=== PATIENT | male | born 1960 | race Caucasian/White ===

== ENCOUNTER 2023-05-02 08:33 | Observation (INO) ==
--- NOTE | 2023-03-29 13:00 | PAT Medication Instructions ---
Medication Instructions Date of Service March 29, 2023 Home Medications Medication Instructions Recorded cyanocobalamin (vitamin B-12) 1,000 mcg IM ONCE #1 ea 12/12/21 1,000 mcg/mL injection kit azelastine 205.5 mcg (0.15 %) nasal spray 2 spray intranasal BID PRN cetirizine 10 mg capsule (Zyrtec) 10 mg PO QAM fluticasone propionate 50 mcg/actuation nasal spray,suspension 2 spray intranasal DAILY PRN metoprolol succinate 50 mg tablet,extended release 24 hr 50 mg PO QAM pregabalin 150 mg capsule 150 mg PO BID sildenafil 100 mg tablet (Viagra) 100 mg PO DAILY PRN flecainide 100 mg tablet 100 mg PO Q12H cyanocobalamin (vitamin B-12) 1,000 mcg/mL injection kit 1,000 mcg IM ONCE aspirin 81 mg tablet,delayed release 81 mg PO QAM celecoxib 100 mg capsule (Celebrex) 100 mg PO QAM chlorthalidone 25 mg tablet 25 mg PO QAM Continue as directed fluticasone propionate 50 mcg/actuation nasal spray,suspension 2 spray intranasal DAILY PRN(if needed) ASK your surgeon for instructions celecoxib 100 mg capsule (Celebrex) 100 mg PO QAM ASK your prescriber and surgeon aspirin 81 mg tablet,delayed release 81 mg PO QAM DO NOT take the morning of surgery cetirizine 10 mg capsule (Zyrtec) 10 mg PO QAM sildenafil 100 mg tablet (Viagra) 100 mg PO DAILY PRN cyanocobalamin (vitamin B-12) 1,000 mcg/mL injection kit 1,000 mcg IM ONCE chlorthalidone 25 mg tablet 25 mg PO QAM Take morning of surgery With a small sip of water, OTHERWISE NOTHING TO EAT OR DRINK AFTER MIDNIGHT: azelastine 205.5 mcg (0.15 %) nasal spray 2 spray intranasal BID PRN(if needed) metoprolol succinate 50 mg tablet,extended release 24 hr 50 mg PO QAM pregabalin 150 mg capsule 150 mg PO BID flecainide 100 mg tablet 100 mg PO Q12H Take evening before surgery azelastine 205.5 mcg (0.15 %) nasal spray 2 spray intranasal BID PRN(if needed) pregabalin 150 mg capsule 150 mg PO BID flecainide 100 mg tablet 100 mg PO Q12H Other Notes If you have any questions please call us at [phone] or [phone] or [phone] or [phone]
--- NOTE | 2023-04-02 15:03 | Anesthesiology Consultation ---
Date of Service April 02, 2023 Assessment & Plan (1) Encounter for pre-operative examination: Plan - upcoming PCP clearance 04/04/23 Susan De Leon and cardiology clearance [facility] [place] Tati Salamancagt 04/29/23. - Outpatient joint pathway: Pending above clearances. Chart Review Chart Review: Pending: Refer to Additional Notes / Consult section and Patient seen in Pre Admission Testing Teaching & Discussion Pre-Anesthesia Teaching/Discussion Notes: Instructed NPO after midnight before surgery, except medications with 15 cc of water. Medication instructions provided according to the PAT guidelines. History Surgery Operation Date: 05/02/23 12:30 Proposed Procedures p OP: Left Total Hip Arthroplasty Anterior Approach - Gerard Castano MD Height/Weight Height: 6 ft 1 in Weight: 88.451 kg Allergies Allergy/AdvReac Type Severity Reaction Status Date / Time Penicillins Allergy Unknown Unknown Verified 03/29/23 11:33 Medications Home Medications Medication Instructions Recorded Confirmed Last Taken azelastine 205.5 mcg (0.15 %) 2 spray intranasal BID PRN 12/01/21 03/29/23 Unknown nasal spray Congestion cetirizine 10 mg capsule (Zyrtec) 10 mg PO QAM 12/01/21 03/29/23 Unknown fluticasone propionate 50 2 spray intranasal DAILY PRN 12/01/21 03/29/23 Unknown mcg/actuation nasal Congestion spray,suspension metoprolol succinate 50 mg 50 mg PO QAM 12/01/21 03/29/23 Unknown tablet,extended release 24 hr pregabalin 150 mg capsule 150 mg PO BID 12/01/21 03/29/23 Unknown sildenafil 100 mg tablet (Viagra) 100 mg PO DAILY PRN Erectile 12/01/21 03/29/23 Unknown Dysfunction flecainide 100 mg tablet 100 mg PO Q12H 12/06/21 03/29/23 Unknown cyanocobalamin (vitamin B-12) 1,000 mcg IM ONCE #1 ea 12/12/21 03/29/23 Unknown 1,000 mcg/mL injection kit aspirin 81 mg tablet,delayed 81 mg PO QAM 03/29/23 03/29/23 Unknown release celecoxib 100 mg capsule (Celebrex) 100 mg PO QAM 03/29/23 03/29/23 Unknown chlorthalidone 25 mg tablet 25 mg PO QAM 03/29/23 03/29/23 Unknown Past Medical History Medical History (Updated 04/02/23 @ 15:00 by Tammy Tong PA-C) GERD (gastroesophageal reflux disease) rare, stable per pt Seasonal allergies Hypertension controlled, stable per pt Polyneuropathy feet Atrial fibrillation dx 2013 > follows with Tati Merrill [facility] [place] > no pacer Patient denies h/o stroke, seizures, heart attack, heart failure, DM, blood clots/DVTs or blood transfusions. Exercise / Class Metabolic Activity II 4-5 Yardwork/Stairs/Walk up hill (denies chest discomfort or shortness of breath with 1 FOS) Past Family History Family History Father , age 87 of lymphoma. Prostate cancer Lymphoma Diabetes Mother , age 84 Heart valve replaced Heart disease Past Surgical History Surgical History H/O lateral meniscus repair of right knee History of colonoscopy History of tooth extraction S/P right knee arthroscopy Past Anesthesia History No Hx of Anesthesia Complications and No Family Hx of Anesthesia Complications History of PONV No Hx of PONV and No Hx of Motion Sickness Social History Smoking Status: Never smoker Do You Dip or Chew Tobacco: Yes (advised npo status) Hx Alcohol Use: Yes Alcohol type: beer alcohol intake frequency: 0-2 drinks per day Hx Substance Use: No substance use type: does not use Review of Systems Patient denies chest pain, shortness of breath, dyspnea on exertion, snoring, witnessed apneas, fever, chills, cough, wheezing, or palpitations. Physical Exam Vital Signs Vitals BP 134/81 P 55 TEMP 98.6 SP02 98% on RA RESP 18 Physical Patient resting comfortably in chair in no acute distress, alert and oriented, responding appropriately throughout visit Full cervical extension range of motion without pain TMD 3.5 finger breadths Mallampati Score 2 Dentition: one crown denies chipped or loose teeth, caps, implants or bridges Lungs: normal respiratory effort. Good air movement, clear throughout to auscultation, no adventitious breath sounds Cardiac: regular rate and rhythm, no murmurs noted Carotid arteries: negative bruit bilat Lab Results Anesthesia Preop Results Results Anesthesia Widget: WBC 9.58 K/ul (4.8-10.8) 04/02/23 Hgb 15.3 g/dl (14.0-18.0) 04/02/23 Hct 43.2 % (42.0-52.0) 04/02/23 Plt 295 K/uL (130-400) 04/02/23 Na 131 mmol/L (136-145) L 04/02/23 K 3.9 mmol/L (3.5-5.1) 04/02/23 Cl 94 mmol/L (98-107) L 04/02/23 CO2 31 mmol/L (21-32) 04/02/23 BUN 14 mg/dl (6-23) 04/02/23 Creat 0.92 mg/dl (0.6-1.4) 04/02/23 Glucose Level 90 mg/dl (70-99(Fasting)) 04/02/23 PT 10.5 Seconds (9.0-12.0) 04/02/23 PTT 27.3 Seconds (21.0-31.0) 04/02/23 INR 1.0 (0.9-1.1) 04/02/23 Urine Color Yellow 04/02/23 Urine Appearance Clear (Clear) 04/02/23 Urine pH 8.0 (4.5-7.5) H 04/02/23 Urine Specific [place] 1.021 (1.000-1.030) 04/02/23 Urine Protein Negative (Negative) 04/02/23 Urine Glucose (UA) Negative (Negative) 04/02/23 Urine Ketones Trace (Negative) H 04/02/23 Urine Blood Negative (Negative) 04/02/23 Urine Nitrite Negative (Negative) 04/02/23 Urine Bilirubin Negative (Negative) 04/02/23 Urine Urobilinogen Negative (Negative) 04/02/23 Urine Leukocyte Esterase Negative (Negative) 04/02/23 Blood Type B Positive 04/02/23 Antibody Screen NEGATIVE 04/02/23 Testing Electrocardiogram Date: 04/02/23 Sinus bradycardia with 1st degree AV block with premature atrial complexes, rate 56 bpm Poor R wave progression consider anterior MD vs lead placement vs LVH Chest X-Ray Date: 04/02/23 No active disease in the chest
--- NOTE | 2023-04-30 12:23 | History & Physical Report ---
Date of Service April 30, 2023 Assessment & Plan (1) Degenerative joint disease of left hip: Plan: Plan: Left total hip replacement most likely same-day surgery History of Present Illness Chief Complaint: Left hip pain Primary Care Provider: JENNIE Preston Patient is a 62-year-old male with a greater than 3-year history of left hip and groin pain. The pain is associated with aching decreased range of motion and stiffness. He cannot tie his shoe or sock. He has less than a 1 block walking tolerance. He has tried both trochanteric and intra-articular injections which have failed. He has radiographic evidence of advanced arthritis of the hip and is admitted for elective hip replacement surgery. He has a history of atrial fibrillation which is controlled with flecainide and metoprolol and is not on an anticoagulant. Allergies Allergy/AdvReac Type Severity Reaction Status Date / Time Penicillins Allergy Unknown Unknown Verified 03/29/23 11:33 Home Medications Medication Instructions Recorded Confirmed Type azelastine 205.5 mcg (0.15 %) 2 spray intranasal BID PRN 12/01/21 03/29/23 History nasal spray Congestion cetirizine 10 mg capsule (Zyrtec) 10 mg PO QAM 12/01/21 03/29/23 History fluticasone propionate 50 2 spray intranasal DAILY PRN 12/01/21 03/29/23 History mcg/actuation nasal Congestion spray,suspension metoprolol succinate 50 mg 50 mg PO QAM 12/01/21 03/29/23 History tablet,extended release 24 hr pregabalin 150 mg capsule 150 mg PO BID 12/01/21 03/29/23 History sildenafil 100 mg tablet (Viagra) 100 mg PO DAILY PRN Erectile 12/01/21 03/29/23 History Dysfunction flecainide 100 mg tablet 100 mg PO Q12H 12/06/21 03/29/23 History cyanocobalamin (vitamin B-12) 1,000 mcg IM ONCE #1 ea 12/12/21 03/29/23 Rx 1,000 mcg/mL injection kit aspirin 81 mg tablet,delayed 81 mg PO QAM 03/29/23 03/29/23 History release celecoxib 100 mg capsule (Celebrex) 100 mg PO QAM 03/29/23 03/29/23 History chlorthalidone 25 mg tablet 25 mg PO QAM 03/29/23 03/29/23 History Past Med/Surg History Medical History GERD (gastroesophageal reflux disease) rare, stable per pt Seasonal allergies Hypertension controlled, stable per pt Polyneuropathy feet Atrial fibrillation dx 2012 > follows with Tati Allanangelo JENKINS [place] > no pacer Surgical History H/O lateral meniscus repair of right knee History of colonoscopy History of tooth extraction S/P right knee arthroscopy Family History Father , age 87 of lymphoma. 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 Other Information That Helps Us Care for You: No Feels Safe at Home: Yes Safety Concerns: Feels Safe At This Time Assistive Devices: Contacts and Glasses Review of Systems Review of Systems: Hip pain Physical Exam Physical Exam: General: Well-nourished well-developed male who appears his stated age HEENT: NCAT, EOMI, PERRLA Neck: Negative without JVD or bruits Heart: Regular rate and rhythm without murmurs or gallops Lungs: Breath sounds present and clear in all celis Abdomen: Flat soft nontender bowel sounds are positive Extremities: Left hip shows equal leg lengths to the right passive range of motion is 0 to 85 degrees flexion with -10 degrees internal rotation which reproduces groin pain Neurological and vascular: Intact Results & Data Results & Data Vital Signs (Past 12 Hours) Weight 90 kg BMI 26 Blood pressure 118/81 Pulse 54 stable
[~2023-05-02 08:33] MED LIST: ACETAMINOPHEN 500 MG TAB PO SCH; ALLERGY Noted to ORDERED Medication SCH; CeleBREX 200 MG CAP PO SCH; FAMOTIDINE 20 MG TAB PO SCH; FLECAINIDE ACETATE 100 MG TABLET PO SCH; GABAPENTIN 600 MG DOSE PO SCH; General Order Problem(s) SCH; LR 500ML BOLUS, THEN 15ML/HR IV SCH; LR 60ML/HR IV SCH; MEPIVACAINE HCL 1.5% 30 ML VIAL ONE; METOCLOPRAMIDE HCL 10 MG TABLET PO SCH; METOPROLOL SUCC 50MG EXT REL TAB PO SCH; ROPIVACAINE 0.5% HCL/PF 150 MG, BUPIVACAINE 0.75% MPF 20 ML, EPINEPHrine 30MG/30ML (OR ... INSTIL SCH; TRANEXAMIC ACID 1,000 MG **IV Intra-op IV SCH; TRANEXAMIC ACID 1,000 MG **IV Pre-op IV SCH; ceFAZolin 2000MG 2,000 MG/15 ML SYR IV SCH; dexAMETHasone 4 MG TAB PO SCH; traMADol HCL 50 MG TABLET PO SCH
[2023-05-02] MEDS ORDERED: MIDAZOLAM HCL 1 MG/ML 2ML VIAL ONE (09:38)
[2023-05-02] MEDS ORDERED: fentaNYL citrate PF 100 MCG/2 ML VIAL ONE (09:39)
--- NOTE | 2023-05-02 09:59 | History & Physical Bridge Note ---
Date of Service May 02, 2023 History & Physical Bridge Note I have examined the patient, reviewed the History & Physical and in the interval since the performance of the History & Physical I have noted the following changes of clinical significance: no changes noted
[2023-05-02] MEDS ORDERED: ORTHO JOINT ANESTHETIC ONE (10:11)
[2023-05-02] MEDS ORDERED: PROPOFOL IV EMULSION 10 MG/ML 20 ML VIAL IV ONE ×3 (11:08→11:54)
[2023-05-02] MEDS ORDERED: PHENYLEPHRINE 100MCG/ML 10ML SYR IV ONE (11:08)
[2023-05-02] MEDS ORDERED: LIDOCAINE 2% 2 ML VIAL/AMP(20MG/ML) INFIL ONE (11:08)
[2023-05-02] MEDS ORDERED: ONDANSETRON INJ 2 MG/ML 2 ML VIAL ONE (11:08)
[2023-05-02] MEDS ORDERED: ePHEDrine sulfate 50 MG/5 ML SYR ONE (11:09)
[2023-05-02] MEDS ORDERED: ePHEDrine sulfate 50 MG/ML AMP ONE (11:31)
[2023-05-02] MEDS ORDERED: KETOROLAC 30 MG/ML VIAL ONE (12:09)
[2023-05-02] MEDS ORDERED: traMADol HCL 50 MG TABLET PO PRN ×3 (12:15→17:06)
--- NOTE | 2023-05-02 12:15 | Post Operative Brief Note ---
Immediate Post Op Note v1 Date of Surgery May 02, 2023 Pre & Post Diagnosis Operation Date: 05/02/23 10:15 Pre-Op Diagnosis: Left Hip Degenerative Joint Disease Post-Op Diagnosis: Left Hip Degenerative Joint Disease I identified the patient and participated in the time-out.: Yes Procedure Operation Date: 05/02/23 10:15 Actual Procedures p Left Total Hip Arthroplasty Anterior Approach, Uncemented(Left) - Gerard Castano MD Surgeon Gerard Castano MD Passenger Interline Clerk Carlos Espana PAHany Estimated Blood Loss 50 Findings Consistent with Post-Op Diagnosis
[2023-05-02] MEDS ORDERED: ATROPINE SULFATE 0.1 MG/ML 10ML SYR IV PRN (12:59)
[2023-05-02] MEDS ORDERED: ONDANSETRON INJ 2 MG/ML 2 ML VIAL IV PRN ×2 (12:59→17:06)
[2023-05-02] MEDS ORDERED: fentaNYL citrate PF 100 MCG/2 ML VIAL IV PRN (12:59)
[2023-05-02] MEDS ORDERED: ePHEDrine sulfate 50 MG/ML AMP IV PRN (12:59)
--- NOTE | 2023-05-02 13:01 | Anesthesiology Progress Note ---
Date of Service May 02, 2023 Anesthesia Post Procedure Vital Signs Vital Signs: Temp Pulse Pulse Resp BP Pulse Ox O2 Del Method 05/02/23 12:55 66 14 124/75 94 Room Air 05/02/23 12:45 64 15 125/67 97 Oxymask 05/02/23 12:37 97.3 F L 70 16 129/64 97 Oxymask 05/02/23 09:19 98.2 F 57 L 16 171/89 H 96 Room Air O2 Flow Rate 05/02/23 12:55 05/02/23 12:45 5 05/02/23 12:37 5 05/02/23 09:19 Pain Intensity Left Hip: Pain Intensity: 4 Transfer of Care Handoff Completed per policy Notes Mental Status: alert / awake / arousable and participated in evaluation Patient Amnestic to Procedure: Yes Nausea / Vomiting: adequately controlled Pain: adequately controlled Airway Patency, RR, SpO2: stable & adequate BP & HR: stable & adequate Hydration State: stable & adequate Neuraxial Anesthesia: was administered and sensory block is resolving Anesthetic Complications: no major complications apparent and Pt Satisfied with anesthetic care
[2023-05-02] MEDS ORDERED: ceFAZolin 2000MG 2,000 MG/15 ML SYR IV ONE ×2 (13:38→14:21)
--- NOTE | 2023-05-02 14:04 | Operative Report ---
Post Operative Report Pre & Post Diagnosis Operation Date: 05/02/23 10:15 Pre-Op Diagnosis: Left Hip Degenerative Joint Disease Post-Op Diagnosis: Left Hip Degenerative Joint Disease I identified the patient and participated in the time-out.: Yes Procedure Operation Date: 05/02/23 10:15 Actual Procedures p Left Total Hip Arthroplasty Anterior Approach, Uncemented(Left) - Gerard Castano MD Surgeon Gerard Castano MD [employer] Teacher Carlos Espana PA-C Estimated Blood Loss 50 Findings Consistent with Post-Op Diagnosis Severe degenerative changes with chronically inflamed synovial lining Specimens Femoral head and bone and cartilage fragments Complications None Indications Patient is a 62-year-old male with a history of end-stage arthritis of the hip which is failed conservative management. Components used: [employer] Polar uncemented hip system: Acetabulum size 56 with 25 mm dome screw and Oreo Oxinium liner. Femur size 10 standard offset with 0 neck length 28 mm Oxinium inner dual mobility head. Description of Procedure Following satisfactory spinal the patient was supine on the operating room table. The left leg was placed in the traction device in the right leg in the well-leg kathleen. Positioning was confirmed with fluoroscopy. The leg was prepared with ChloraPrep and draped sterilely. A surgical timeout was performed. An anterior approach was performed in the interval between the sartorius and tensor muscles. The circumflex femoral vessels were identified and coagulated. An anterior capsulotomy was performed exposing the arthritic femoral neck and head. Fluoroscopy was used to confirm femoral neck resection level which was completed and the arthritic femoral head was removed. The acetabular self-retaining retractor was placed. Acetabular preparation was completed with excision of labral and soft tissues and reaming under direct vision. The 56 shell was impacted into a healthy bed into a position of 35 to 40 degrees of abduction and 25 degrees of anteversion confirmed with fluoroscopy. A dome screw was placed followed by the Oreo Oxinium liner. Local anesthetic was placed and the wound was irrigated. The femur was placed into a position of external rotation extension and adduction. The femoral canal was identified and was prepared up to the size 10. A trial reduction with a standard offset neck and a 0 neck length head was performed. Fluoroscopy showed good fit and fill of the proximal canal. Good orientation of the leg lengths and offset restored at the level of the lesser trochanter. The hip was dislocated. The trial component removed. Local anesthetic was placed. After irrigation the stem head complex of the same size was placed and the hip was reduced with fluoroscopy showing similar findings. The wound was irrigated with 500 cc of experience irrigation. There was very little bleeding. The tensor fascia was closed with running suture of 0 strata fix as well as the deeper subcutaneous fat layer. The superficial layer was closed with 3 oh strata fix. Dermabond Prineo dressing and negative pressure wound dressing were applied. The patient was returned to his bed in stable condition. Note: Carlos KERN was present and assisted throughout due to the complicated nature of this case he help with preparation and set up an reading assistant throughout. He assisted with hemostasis and exposure throughout the procedure. He also closed the fascial subcutaneous and skin layers and applied the postop dressing. I attest to the content of the Intraoperative Record and any orders documented therein. Any exceptions are noted below.
--- NOTE | 2023-05-02 14:46 | Fluoroscopy Report ---
INTRAOPERATIVE RADIOGRAPH CLINICAL HISTORY: Left hip arthroplasty. Fluoro time: 11 seconds Ka,r: 1.55 mGy FINDINGS: A single spot fluoroscopic view of the left hip is presented. A bipolar left hip arthroplas ty is in near anatomic alignment. A single cortical lag screw transfixes the acetabular cup. No evide nce of acute fracture is seen on this single spot image. IMPRESSION: Intraoperative image from a left hip arthroplasty procedure as above. Electronically signed by: Lee Angel M.D. 05/02/2023 2:44 PM
[2023-05-02] MEDS ORDERED: HYDROmorphone INJ 0.5 MG/0.5 ML SYR IV PRN (17:06)
[2023-05-02] MEDS ORDERED: MAGNESIUM HYDROXIDE SUSP 30 ML UDC PO PRN (17:06)
[2023-05-02] MEDS ORDERED: FLUTICASONE PROPIONATE NA SPR 16 GM BTL PRN (17:06)
[2023-05-02] MEDS ORDERED: diphenhydrAMINE 50 MG/ML VIAL IV PRN (17:06)
[2023-05-02] MEDS ORDERED: NALOXONE HCL 0.4 MG/1 ML VIAL/CARP IV PRN (17:06)
[2023-05-02] MEDS ORDERED: bisacodyL 10 MG SUPP PR PRN (17:06)
[2023-05-02] MEDS: SODIUM CHLORIDE 0.9% 1,000 ML IV SCH (17:37)
[2023-05-02] MEDS: FLECAINIDE ACETATE 100 MG TABLET PO SCH (17:42)
[2023-05-02] MEDS: ASPIRIN 81 MG ECTAB PO SCH (20:14)
[2023-05-02] MEDS: PREGABALIN 150 MG CAP PO SCH (20:14)
[2023-05-02] MEDS: CeleBREX 200 MG CAP PO SCH (20:14)
[2023-05-02] MEDS: DOCUSATE SODIUM 100 MG CAP PO SCH (20:15)
[2023-05-02] MEDS ORDERED: SENNA 8.6 MG TAB PO SCH (21:00)
[2023-05-02] MEDS: ceFAZolin 2000MG 2,000 MG/15 ML SYR IV SCH (21:41)
[2023-05-02] MEDS: ACETAMINOPHEN 500 MG TAB PO SCH (21:41)
[2023-05-03] MEDS: SODIUM CHLORIDE 0.9% 1,000 ML IV SCH (03:32)
[2023-05-03] MEDS: FLECAINIDE ACETATE 100 MG TABLET PO SCH (05:19)
[2023-05-03] MEDS: ceFAZolin 2000MG 2,000 MG/15 ML SYR IV SCH (05:20)
[2023-05-03] MEDS: ACETAMINOPHEN 500 MG TAB PO SCH (05:35)
[2023-05-03 06:29] LABS: Basophils # (auto) 0.04 K/uL (0.00-0.20); Basophils % (auto) 0.2 %; Hematocrit (blood only) 38.2 % (42.0-52.0); Hemoglobin 13.1 g/dl (14.0-18.0); Immature Granulocytes # (auto) 0.11 K/uL (0.01-0.20); Immature Granulocytes % (auto) 0.6 %; Lymphocytes # (auto) 1.12 K/uL (1.20-3.40); Lymphocytes % (auto) 6.2 %; Mean Corpuscular Hemoglobin 31.3 pg (25.0-34.0); Mean Corpuscular Hgb Conc 34.3 g/dL (32.0-36.0); Mean Corpuscular Volume 91.4 fL (80.0-100.0); Mean Platelet Volume 10.6 fL (9.4-12.4); Monocytes % (auto) 6.1 %; Neutrophils # (auto) 15.63 K/uL (1.40-6.50); Neutrophils % (auto) 86.9 %; Platelet Count 215 K/uL (130-400); RDW Coefficient of Variation 11.8 % (11.5-14.5); RDW Standard Deviation 39.1 fL (36.4-46.3); Red Blood Count 4.18 M/uL (4.70-6.10)
[2023-05-03 06:48] LABS: BUN Creatinine Ratio 17.8 (10-20); Calcium 8.5 mg/dl (8.6-10.3); Creatinine Clr Calc Pharmacy 94.9 ml/min; Est GFR (Non-African American) 90.6 ml/min; Potassium 4.2 mmol/L (3.5-5.1)
--- NOTE | 2023-05-03 07:54 | Orthopedic Progress Note ---
Date of Service May 03, 2023 Assessment & Plan (1) Degenerative joint disease of left hip: Plan: Postop day 1 status post left [facility] PT/OT protocols. WBAT DVT prophylaxis - ASA po bid, SCD's , krystina's Pain managment as written. Leukocytosis - Likely due to surgical stress and or preop steroids. Pt asymptomatic. DC planning - services up dc. Admission and Anticipated Discharge Date Admission Date: May 02, 2023 Subjective Postop day 1 status post left total hip arthroplasty Patient sitting up in bed awake and alert. States he is feeling good today. Pain is controlled. No other complaints. He is hoping to go home today. Physical Exam Physical Exam: Dressings are clean, dry, and intact. Calves are soft nontender neurovascular appears intact. Toes are mobile. Results & Data Vital Signs (Past 12 Hours) Vital Signs Temp Pulse Resp BP Pulse Ox O2 Del Method 05/03/23 04:00 36.5 C 60 16 129/78 94 Room Air 05/03/23 00:24 36.5 C 60 16 110/70 92 Room Air 05/02/23 20:12 36.6 C 69 18 165/78 H 99 Room Air Laboratory Results Laboratory Results WBC 18.00 K/ul (4.8-10.8) H 05/03/23 06:10 RBC 4.18 M/uL (4.70-6.10) L 05/03/23 06:10 Hgb 13.1 g/dl (14.0-18.0) L 05/03/23 06:10 Hct 38.2 % (42.0-52.0) L 05/03/23 06:10 MCV 91.4 fL (80.0-100.0) 05/03/23 06:10 MCH 31.3 pg (25.0-34.0) 05/03/23 06:10 MCHC 34.3 g/dL (32.0-36.0) 05/03/23 06:10 RDW Std Deviation 39.1 fL (36.4-46.3) 05/03/23 06:10 RDW Coeff of Lian 11.8 % (11.5-14.5) 05/03/23 06:10 Plt Count 215 K/uL (130-400) 05/03/23 06:10 MPV 10.6 fL (9.4-12.4) 05/03/23 06:10 Immature Gran % (Auto) 0.6 % 05/03/23 06:10 Neut % (Auto) 86.9 % 05/03/23 06:10 Lymph % (Auto) 6.2 % 05/03/23 06:10 Jerome % (Auto) 6.1 % 05/03/23 06:10 Eos % (Auto) 0.0 % 05/03/23 06:10 Baso % (Auto) 0.2 % 05/03/23 06:10 Neut # (Auto) 15.63 K/uL (1.40-6.50) H 05/03/23 06:10 Lymph # (Auto) 1.12 K/uL (1.20-3.40) L 05/03/23 06:10 Jerome # (Auto) 1.10 K/uL (0.11-0.59) H 05/03/23 06:10 Eos # (Auto) 0.00 K/uL (0.00-0.50) 05/03/23 06:10 Baso # (Auto) 0.04 K/uL (0.00-0.20) 05/03/23 06:10 Immature Gran # (Auto) 0.11 K/uL (0.01-0.20) 05/03/23 06:10 Sodium 132 mmol/L (136-145) L 05/03/23 06:10 Potassium 4.2 mmol/L (3.5-5.1) 05/03/23 06:10 Chloride 98 mmol/L (98-107) 05/03/23 06:10 Carbon Dioxide 27 mmol/L (21-32) 05/03/23 06:10 Anion Gap 7 (3-11) 05/03/23 06:10 BUN 16 mg/dl (6-23) 05/03/23 06:10 Creatinine 0.90 mg/dl (0.6-1.4) 05/03/23 06:10 Est Cr Clr Drug Dosing 94.9 ml/min 05/03/23 06:10 Est GFR ( Amer) 105.0 ml/min 05/03/23 06:10 Est GFR (Non-Af Amer) 90.6 ml/min 05/03/23 06:10 BUN/Creatinine Ratio 17.8 (10-20) 05/03/23 06:10 Glucose 133 mg/dl (70-99(Fasting)) H 05/03/23 06:10 Calcium 8.5 mg/dl (8.6-10.3) L 05/03/23 06:10 Impressions Hip X-Ray 05/02/23 10:15 INTRAOPERATIVE RADIOGRAPH CLINICAL HISTORY: Left hip arthroplasty. Fluoro time: 11 seconds Ka,r: 1.55 mGy FINDINGS: A single spot fluoroscopic view of the left hip is presented. A bipolar left hip arthroplasty is in near anatomic alignment. A single cortical lag screw transfixes the acetabular cup. No evidence of acute fracture is seen on this single spot image. IMPRESSION: Intraoperative image from a left hip arthroplasty procedure as above. Electronically signed by: Lee Angel M.D. 05/02/2023 2:44 PM
[2023-05-03] MEDS: DOCUSATE SODIUM 100 MG CAP PO SCH (08:28)
[2023-05-03] MEDS: PREGABALIN 150 MG CAP PO SCH (08:30)
[2023-05-03] MEDS: ASPIRIN 81 MG ECTAB PO SCH (08:30)
[2023-05-03] MEDS: CeleBREX 200 MG CAP PO SCH (08:30)
[2023-05-03] MEDS ORDERED: METOPROLOL SUCC 50MG EXT REL TAB PO SCH (09:00)
[2023-05-03] MEDS ORDERED: CETIRIZINE HCL 10 MG TABLET PO SCH (09:00)
[2023-05-03] MEDS ORDERED: CHLORTHALIDONE 25 MG TAB PO SCH (09:00)
[2023-05-03] MEDS ORDERED: MULTIVITAMIN TAB PO SCH (09:00)
--- NOTE | 2023-05-07 14:01 | Discharge Summary ---
Date of Service May 07, 2023 Admission HPI Per Admitting Provider Patient is a 62-year-old male with a greater than 3-year history of left hip and groin pain. The pain is associated with aching decreased range of motion and stiffness. He cannot tie his shoe or sock. He has less than a 1 block walking tolerance. He has tried both trochanteric and intra-articular injections which have failed. He has radiographic evidence of advanced arthritis of the hip and is admitted for elective hip replacement surgery. He has a history of atrial fibrillation which is controlled with flecainide and metoprolol and is not on an anticoagulant. Admission Exam Per Admitting Provider Physical Exam: General: Well-nourished well-developed male who appears his stated age HEENT: NCAT, EOMI, PERRLA Neck: Negative without JVD or bruits Heart: Regular rate and rhythm without murmurs or gallops Lungs: Breath sounds present and clear in all celis Abdomen: Flat soft nontender bowel sounds are positive Extremities: Left hip shows equal leg lengths to the right passive range of motion is 0 to 85 degrees flexion with -10 degrees internal rotation which reproduces groin pain Neurological and vascular: Intact Principal Diagnosis left hip osteoarthritis Discharge Data Allergies Allergy/AdvReac Type Severity Reaction Status Date / Time Penicillins Allergy Unknown Unknown Verified 05/02/23 09:01 Procedures Performed Operation Date: 05/02/23 10:15 Actual Procedures p Left Total Hip Arthroplasty Anterior Approach, Uncemented(Left) - Gerard Castano MD Ordered Studies 05/02/23 10:15 FL hip LT 1V Routine Hospital Course (1) Degenerative joint disease of left hip: Patient: IMAN LARRY Admit Date: 05/02/23 MR#: [id number] Att Phy: Gerard Castano MD Acct ID: [id number] Vernell Phy: Jose Culp CRNP Date: 1960 Fam Phy: Age: 62 Location: 3E Sex: M Room/Bed: E306-1 cc: ~ *NOTICE TO RECEIVING LIBERTARIAN/AGENCY This information is strictly Confidential and protected under [place] law. [place] law prohibits you from making any further disclosure of this information unless further disclosure is expressly permitted by the written consent of the person to whom it pertains or is authorized by law. A general authorization for the release of medical or other information is not sufficient for this purpose. Hospital accepts no responsibility if the information is made available to any other person, INCLUDING THE PATIENT. Date of Service May 03, 2023 Assessment & Plan (1) Degenerative joint disease of left hip: Plan: Postop day 1 status post left [facility] PT/OT protocols. WBAT DVT prophylaxis - ASA po bid, SCD's , krystina's Pain managment as written. Leukocytosis - Likely due to surgical stress and or preop steroids. Pt asymptomatic. DC planning - services up dc. Admission and Anticipated Discharge Date Admission Date: May 02, 2023 Subjective Postop day 1 status post left total hip arthroplasty Patient sitting up in bed awake and alert. States he is feeling good today. Pain is controlled. No other complaints. He is hoping to go home today. Physical Exam Physical Exam: Dressings are clean, dry, and intact. Calves are soft nontender neurovascular appears intact. Toes are mobile. Results & Data Vital Signs (Past 12 Hours) Vital Signs Temp Pulse Resp BP Pulse Ox O2 Del Method 05/03/23 04:00 36.5 C 60 16 129/78 94 Room Air 05/03/23 00:24 36.5 C 60 16 110/70 92 Room Air 05/02/23 20:12 36.6 C 69 18 165/78 H 99 Room Air Laboratory Results Laboratory Results WBC 18.00 K/ul (4.8-10.8) H 05/03/23 06:10 RBC 4.18 M/uL (4.70-6.10) L 05/03/23 06:10 Hgb 13.1 g/dl (14.0-18.0) L 05/03/23 06:10 Hct 38.2 % (42.0-52.0) L 05/03/23 06:10 MCV 91.4 fL (80.0-100.0) 05/03/23 06:10 MCH 31.3 pg (25.0-34.0) 05/03/23 06:10 MCHC 34.3 g/dL (32.0-36.0) 05/03/23 06:10 RDW Std Deviation 39.1 fL (36.4-46.3) 05/03/23 06:10 RDW Coeff of Lian 11.8 % (11.5-14.5) 05/03/23 06:10 Plt Count 215 K/uL (130-400) 05/03/23 06:10 MPV 10.6 fL (9.4-12.4) 05/03/23 06:10 Immature Gran % (Auto) 0.6 % 05/03/23 06:10 Neut % (Auto) 86.9 % 05/03/23 06:10 Lymph % (Auto) 6.2 % 05/03/23 06:10 Hill % (Auto) 6.1 % 05/03/23 06:10 Eos % (Auto) 0.0 % 05/03/23 06:10 Baso % (Auto) 0.2 % 05/03/23 06:10 Neut # (Auto) 15.63 K/uL (1.40-6.50) H 05/03/23 06:10 Lymph # (Auto) 1.12 K/uL (1.20-3.40) L 05/03/23 06:10 Hill # (Auto) 1.10 K/uL (0.11-0.59) H 05/03/23 06:10 Eos # (Auto) 0.00 K/uL (0.00-0.50) 05/03/23 06:10 Baso # (Auto) 0.04 K/uL (0.00-0.20) 05/03/23 06:10 Immature Gran # (Auto) 0.11 K/uL (0.01-0.20) 05/03/23 06:10 Sodium 132 mmol/L (136-145) L 05/03/23 06:10 Potassium 4.2 mmol/L (3.5-5.1) 05/03/23 06:10 Chloride 98 mmol/L (98-107) 05/03/23 06:10 Carbon Dioxide 27 mmol/L (21-32) 05/03/23 06:10 Anion Gap 7 (3-11) 05/03/23 06:10 BUN 16 mg/dl (6-23) 05/03/23 06:10 Creatinine 0.90 mg/dl (0.6-1.4) 05/03/23 06:10 Est Cr Clr Drug Dosing 94.9 ml/min 05/03/23 06:10 Est GFR ( Amer) 105.0 ml/min 05/03/23 06:10 Est GFR (Non-Af Amer) 90.6 ml/min 05/03/23 06:10 BUN/Creatinine Ratio 17.8 (10-20) 05/03/23 06:10 Glucose 133 mg/dl (70-99(Fasting)) H 05/03/23 06:10 Calcium 8.5 mg/dl (8.6-10.3) L 05/03/23 06:10 Impressions Hip X-Ray 05/02/23 10:15 INTRAOPERATIVE RADIOGRAPH CLINICAL HISTORY: Left hip arthroplasty. Fluoro time: 11 seconds Ka,r: 1.55 mGy FINDINGS: A single spot fluoroscopic view of the left hip is presented. A bipolar left hip arthroplasty is in near anatomic alignment. A single cortical lag screw transfixes the acetabular cup. No evidence of acute fracture is seen on this single spot image. IMPRESSION: Intraoperative image from a left hip arthroplasty procedure as above. Electronically signed by: Lee Angel M.D. 05/02/2023 2:44 PM Signed By: <Electronically signed by Gerard Castano MD> 05/03/23 0802 <Electronically signed by Carlos Espana PA-C> 05/03/23 0754 Created: 05/03/23 0751 Total Time Total Time Spent Total Time Spent (In Minutes): 5 Discharge Plan Discharge Items Patient Disposition: Home - Home Health Services Reason For Visit: POST SURGICAL CARE Discharge Diagnosis: Status post left total hip replacement Activity: Per Instructions section Lifting: None Bathing: May shower/bathe in 3 days Sexual Activity: Wait until after follow-up appointment Exercise/Sports: None Non-emergency contact: Surgeon Call non-emergency contact if: you have any medication questions, your pain is concerning for you, your temperature is above 101.5, your wound has increased redness and your wound has increased drainage Follow-up/Referrals: [facility] [Outside] (as per surgeon's office) Gerard Castano MD [Surgeon] - Jose Culp CRNP [Primary Care Provider] - Diet: Regular Addtl Attending Provider Instructions: DR. HEATON POST-OP INSTRUCTIONS FOR TOTAL HIP ARTHROPLASTY PLEASE REVIEW PRIOR TO SURGERY Day of Surgery You will be admitted and meet the nursing and anesthesia team. Dr. Castano will see you and sign your operative side. Anesthesia will place your spinal anesthetic in the pre-op area Your surgery will be performed and last approximately 1 2 hours. Upon waking, you will notice a dressing and ice pack on your hip. You will remain in the recovery room for 1 2 hours, then be transferred to your room in the ambulatory surgical area if you are to go home the same day as your surgery or transferred to the orthopedic floor if you will be staying overnight. Most of Dr. Castanos total hip patients go home the same day as surgery. This depends on how well you feel. Patients generally seem to feel better in their own home environment, and the risk of exposure to bad bugs is much lower. (Your post-operative medications will be sent to your pharmacy approximately 1-2 days prior to your procedure) Day 1 post-op (if you have an overnight stay in the hospital) You will have bloodwork drawn in the morning Physical therapy will evaluate you in the morning. You will start getting out of bed and ambulating with a walker. They will instruct you on hip motion exercises. Use your cold packs as instructed. This will decrease swelling and minimize pain. library services coordinator will discuss your discharge plan. Discharge will generally be around 11am Day 1 post-op (all patients) You will be taking Aspirin 81mg twice for 4 weeks to decrease the risk of a blood clot. You will most likely have a drain and a KELLI (superficial wound VAC) dressing post-operatively. This will keep your incision dry as well as aid in early healing. The batteries will wear out and the VAC will lose suction around day 6 - 7 post-op. At that time, you may turn off the device and disconnect from the dressing. You must keep the dressing on until your first post- operative visit with Dr. Castano. If the dressing appears to be saturated, please call our office. Day 2 14 post-op You will have a home nurse visit to assess your status and remove your drain on post-op day 2. You are permitted to shower immediately with the VAC. Do not soak the dressing let the shower flow on your opposite side, and pat dry the plastic. Once the dressing has been removed, you may shower normally with the incision exposed. Do not rub the area simply let soapy water run over the incision and lightly pat dry. Therapy will begin on post-op day 3. Your therapy prescription will be sent to your home therapy company/therapist You should continue doing your home exercises Week 2 post-op and forward You will have your first post-op appointment 2 weeks after surgery which should have been scheduled for you by our office. This appointment will be to check your incision, progression of therapy and pain control. Xrays will be taken to evaluate the prosthesis. You will continue to use a cane or a walker until you feel safe enough to stop using it. You will have a 6-week post-op appointment which should have been scheduled for you by our office. Xrays will be taken to evaluate the prosthesis. You will continue to advance range of motion. By 3 to 4 months after surgery, you should have almost full range of motion and may resume most activities. You may have some pain around the hip with certain activities this is completely normal. You will be scheduled for a 1 year post-op appointment to assess your outcome (sooner if Dr. Castano feels necessary). Pain: The immediate post-op period after hip replacement surgery can be painful. However, the degree and frequency of the pain is generally much less than knee replacement surgery. You should take your pain medicine as you need it, especially prior to physical therapy and bedtime. Your pain will decrease and you may transition to a milder pain medicine (with less side effects, such as Tylenol) as soon as possible. It is common to have pain at night that interferes with sleep this can last for several months. Pain medicines can cause nausea and constipation do not take more than you need. You may be prescribed one or more of the following medications: 1. Celebrex this controls inflammation and makes pain medications mor effective it will be taken once or twice a day 2. Tylenol a pain medicine that can help to decrease your pain you should take 1000mg three times a day 3. Tramadol a pain medicine that can be taken every 4-6 hours (instead of Oxycodone) as needed to control your pain 4. Oxycodone a VERY strong pain medicine that can be taken every 4-6 hours (instead of Tramadol) as needed to control your pain. This medication has the most side effects and is usually not necessary for hip replacements. 5. Aspirin 81mg blood thinning medication to help minimize the risk of development of blood clots unfortunate side effects of pain medicine include nausea and constipation if you experience these issues or have any questions about your post-op medications, call [facility] at for assistance/advice on how to manage these issues Hip replacement surgery does not require a lot of aggressive physical therapy. Learning to walk safely and obeying hip precautions are most important. While in the hospital, you will be shown a series of home exercises you should perform these exercises 3 4 times daily in addition to physical therapy. After the completion of home therapy (approx.. 2 weeks), most therapy exercises can be done on your own. You should walk several times a day. Try not to be standing for more than an hour at a time during the first 4 weeks post-op as you may experience more swelling. If you develop swelling, you need to elevate your legs/feet at or above the level of your heart. You may progress from a walker to a cane to walking independently as you feel comfortable. Unless it is an emergency, YOUR ARE NOT PERMITTED TO HAVE ANY DENTAL CLEANING/WORK UNTIL 3 MONTHS AFTER SURGERY. You will be required to take an antibiotic prior to any dental cleaning or dental work in order to prevent your joint prothesis from getting infected. This medication is a one time per visit dose to be taken one hour prior to appointment. You may call our office for this prescription or your dentist may be willing to prescribe the medication. Remember to contact [facility] at if you develop any signs of infection which include increased swelling, pain, redness, drainage from incision, warmth, fever, chills or severe pain unrelieved by pain medication. If you develop any chest pain or shortness of breath, you should proceed immediately to the nearest Emergency Room. It is normal to run a low-grade fever after surgery. If your fever is consistent at 101.0 or higher, you will need to contact the office. Pending Studies at Discharge: No Stand-Alone Forms: Anesthesia/Sedation, Adult, My [facility] Medications and DC Order Prescriptions: Continued pregabalin 150 mg capsule 150 mg PO BID fluticasone propionate 50 mcg/actuation spray,suspension 2 spray intranasal DAILY PRN (Reason: Congestion) Rx Instructions: administer into each nostril azelastine 205.5 mcg (0.15 %) spray,non-aerosol 2 spray intranasal BID PRN (Reason: Congestion) Rx Instructions: administer into each nostril Zyrtec 10 mg capsule 10 mg PO QAM metoprolol succinate 50 mg tablet extended release 24 hr 50 mg PO QAM sildenafil [Viagra] 100 mg tablet 100 mg PO DAILY PRN (Reason: Erectile Dysfunction) Rx Instructions: administer 30 minutes to 4 hours before activity cyanocobalamin (vitamin B-12) 1,000 mcg/mL kit 1,000 mcg IM ONCE Qty: 1 0RF Patient Comments: finished with this flecainide 100 mg tablet 100 mg PO Q12H chlorthalidone 25 mg Tablet 25 mg PO QAM Discontinued celecoxib [Celebrex] 100 mg Capsule 100 mg PO QAM aspirin [Aspir-81] 81 mg Tablet,Delayed Release (Dr/Ec) 81 mg PO QAM Krames/Other Patient Handouts: DVT Post Op Prevention Admission Data Admit Date/Time: 05/02/23 15:40 Attending Provider: Gerard Castano Admit Provider: Gerard Castano Primary Care Provider: Jose Culp Other Providers: [facility],Home Health Other Interventions: Discharge Summary Assessment (RN) Last Done: 05/03/23 10:46
== END 2023-05-03 11:37 | disposition home health service (06) ==
LOC: 3E 08:33 → ASU 08:33